=== PATIENT | male | born 1980 | race Caucasian/White ===

== ENCOUNTER 2018-03-08 16:25 | Emergency (ER) | payer SELFPAY ==
[~2018-03-08] VITALS: Ht 165.1 cm; Wt 81.6 kg
[2018-03-08 16:25] VITALS: BP 132/80
--- NOTE | 2018-03-08 16:25 | NUR ---
Patient BIB [facility] for pre-booking medical evaluation. RN evaluating patient in [place].
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
[2018-03-08 16:40] VITALS: BP 130/70
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
== END 2018-03-08 16:40 ==
LOC: MED 16:25
DX: Z02.89 Encounter for other administrative examinations (principal); R03.0 Elevated blood-pressure reading, without diagnosis of hypertension; V49.40XA Driver injured in collision with unspecified motor vehicles in traffic accident, initial encounter; Y93.89 Activity, other specified; Y92.410 Unspecified street and highway as the place of occurrence of the external cause; Y99.8 Other external cause status
CPT/HCPCS: 99283